=== PATIENT | female | born 1970 | race African-American/Black ===

== ENCOUNTER → 2020-11-07 | Outpatient (CLI) | payer OTHER ==
[~2020-11-07] VITALS: Ht 165.1 cm; Wt 62.6 kg
[~2020-11-07] MED LIST: ALPRAZOLAM 0.50.5 M1 PO; AMBIEN 10 MG TA10 MG PO; CELEXA 20 MG TA20 M1 PO; COZAAR 50 MG TA50 M1 PO; CYCLOBENZAPRINE10 MG PO; DEPAKOTE ER500 M1 PO; ESTRACE0.5 MG PO; ESTRACE1 MG PO; FLEXERIL PO; HYDROCHLOROTHIA25 M1 PO; HYDROCODONE-AP1 EAC6 PO; KLOR-CON M2020 MEQ PO; LUNESTA3 MG PO; MELOXICAM15 MG PO; NEURONTIN 300300 M1 PO; NEURONTIN 300M300 M2 PO; NORCO 5-325 TA1 EACH PO; NORVASC 5 MG TAB5 MG PO; PROAIR HFA8.5 GM INH; ROBAXIN500 MG PO; TOPROL XL50 MG PO; TRAMADOL 50 MG50 MG PO; ULTRAM 50MG TAB50 MG PO; XANAX 0.25 MG0.25 MG; XANAX 0.25 MG0.25 MG PO
--- NOTE | ~2020-11-07 | HPC ---
[facility] [place] [address] PAIN MANAGEMENT CONSULTATION Name: TYREE BROWNING Room #: REG SADIA SpainMellyMelvinMelly#: [id number] Admission: 11/07/20 Attend Phys: Manuel Lares DO Discharge: Date of : 68 Report #: [id number] THIS REPORT FOR: cc: Jah River,Manuel Guillen MD, DO ~ cc: Farhana Trujillo NP DATE OF SERVICE: 11/07/2020 CHIEF COMPLAINT: Low back pain, right lower extremity pain with paresthesias. HISTORY OF PRESENT ILLNESS: As you know, the patient is a 50-year-old female who has an acute onset of low back pain, right lower extremity pain with paresthesias. She indicates that she has had symptoms in the past for which she underwent epidural injections with benefit. She reports that she received excellent benefit with those injections in the past, but has not followed up with that clinic since 2012. She reports that her new pain began without inciting injury or trauma. She has been in physical therapy since 04/2020, going once a week due to limitations of COVID-19 accommodating the patient in their clinic. Due to lack of improvement with conservative treatment, the patient sought further evaluation through her PCP who ordered x-ray of the lumbar spine. Unfortunately, MRI was not obtainable, which would be extremely beneficial in helping us to determine the potential source of her symptoms. She does have imaging from the past, but nothing recent enough to be able to make any clinical correlations. The patient was referred on to our clinic to discuss interventional treatments to address low back and right lower extremity pain with radiation all the way to the foot. The patient reports today her pain is continuous, steady and constant. She describes the pain as burning, shooting, throbbing, sharp, stabbing, numbness and tingling. Places current pain score at 10/10, daily average anywhere from 8-10/10, worst pain has been 10/10. The patient reports pain is exacerbated with motion and is improved with heat and cold compresses. She has been referred to our service to discuss interventional treatment options. PAST MEDICAL HISTORY: 1. Hypertension. 2. History of nephrolithiasis. 3. Migraine headaches. 4. Anxiety. 5. Insomnia. PAST SURGICAL HISTORY: 1. Hysterectomy. 2. Cholecystectomy. 3. [place] [address] PAIN MANAGEMENT CONSULTATION Name: TYREE BROWNING Room #: REG CL Mick#: [id number] Admission: 11/07/20 Attend Phys: Manuel Lares DO Discharge: Date of : 68 Report #: [id number] 4. Previous breast surgery. SOCIAL HISTORY: The patient denies current tobacco use. Denies IV or illicit drug use. Denies any chronic alcohol use. 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 She is working, not receiving workmen's compensation nor is she trying to obtain disability benefits. She is not in litigation in regards to pain. She is unaccompanied at today's visit. REVIEW OF SYSTEMS: Positive only for wearing corrective eyewear, low back pain and right lower extremity pain. All other review of systems negative per 12-point review of systems other than those listed in history of present illness. Pain impact score 63/70, severe near complete interference of daily activities secondary to pain. ALLERGIES: CODEINE, ASPIRIN, ACETAMINOPHEN, AND LATEX. CURRENT MEDICATIONS: Divalproex 500 mg once a day, Lunesta 3 mg p.o. at bedtime, alprazolam 0.5 mg once a day, potassium chloride 20 mEq p.o. every day, estradiol 0.5 mg once a day, hydrochlorothiazide 25 mg per day, metoprolol XL 50 mg once a day, meloxicam 15 mg once a day, albuterol 2 puffs q.4 hours p.r.n., gabapentin 300 mg b.i.d. IMAGING: No new imaging available. PHYSICAL EXAMINATION: VITAL SIGNS: Blood pressure 166/93, pulse 67, respiratory rate 16 and unlabored. The patient 98% on room air. Height 5 feet 5 inches tall, weight 138 pounds, BMI calculated 23.0. GENERAL: Well-developed, well-nourished, well-hydrated 50-year-old female appearing stated age, placing current pain score up to 10/10. HEENT: Normocephalic, atraumatic. Pupils equal, round and responsive to light. Extraocular muscles are intact. Speech is fluent. The patient deemed a good historian. She is wearing a mask in compliance with COVID-19 regulations. LUNGS: Clear. No appreciable wheezes, rhonchi or rales. CARDIOVASCULAR: Regular. No appreciable gallop, no rub. EXTREMITIES: Show no clubbing, no cyanosis. No appreciable edema. MUSCULOSKELETAL: Lower extremity strength equal and symmetrical 5/5. She is tender to palpation over the paraspinal musculature on the right, negative left. Phuong's test is negative. Seated straight leg raising negative. Supine straight leg raising positive on the right. Fabere's test is negative. Modified Gaenslen's positive for some axial low back pain. Ankle clonus negative. Babinski is negative. Gait appears mildly antalgic, though she can toe walk and heel walk. ASSESSMENT: 1. Symptomatic lumbar radiculopathy. [facility] [address] [place] [address] PAIN MANAGEMENT CONSULTATION Name: TYREE BROWNING ESTRELLA Room #: REG SADIA Mick#: [id number] Admission: 11/07/20 Attend Phys: Manuel Lares DO Discharge: Date of : 68 Report #: [id number] 2. Chronic low back pain. 3. Lumbosacral spondylosis. 4. Chronic intractable pain. PLAN: 1. Based on today's physical exam, the history the patient has provided, the description the patient uses in regards to pain as well as location of symptoms, the likely source of the patient's pain is lumbar radiculopathy. The patient comes to us today to discuss treatment options. She has trialled conservative treatment with [id number] medications, rest, relaxation heat and cold compresses without benefit. She has been started on physical therapy and attending physical therapy once a week since April, but this has yet to provide much in the way of improvement. She sought further evaluation of the primary care physician who has trialed the patient on gabapentin, but again the patient has noted no benefit. She was subsequently referred on to our clinic to discuss interventional treatment options. We discussed with the patient the treatment most appropriate for her symptoms is a lumbar epidural injection under fluoroscopic guidance. We discussed this with the patient today. Apparently, she has had these injections in the past and did very well. The patient and I did discuss that if her symptoms do not improve with an epidural injection then we would recommend the primary team obtain a new MRI, review those findings and determine if more interventional treatment options would be recommended or surgical consultation would be necessary. We will discuss this at followup visits based on the efficacy of the proposed epidural injection. 2. The patient will clear her schedule for tomorrow to undergo lumbar epidural injection. We will have her return to undergo that procedure. We will keep you apprised of response to treatment. 3. No medication changes made at today's visit. We recommend the patient continue current medical therapy as prior prescribed. One can certainly look towards increasing the gabapentin as she is only taking one 300 mg tablet in morning and one 300 mg tablets at night. This could be escalated all the way up to 1200 mg 3 times a day if necessary. If this is necessary to control symptoms further, we will provide those suggestions to the referring physician. 4. We wish to thank Dr. Phelps for the opportunity to see the patient in consultation. We will keep you apprised of the patient's response to lumbar epidural injections. Again, we wish to thank you for the opportunity to see the patient in consultation. By: [id number] Manuel Lares DO /nt
[2020-11-07 09:45] VITALS: BP 166/93
--- NOTE | 2020-11-07 10:23 | NUR ---
Pain Clinic Assessment: 1. History of Osteoarthritis: Not Applicable History of Rheumatoid Arthritis: Not Applicable 2. Height: 5 ft. 5 in. 165.1 cm. Weight: 138.0 lb. oz. 62.596 kg. Patient's BMI: 23.0 3. Vital Signs: BP: 166/93 Pulse: 67 Resp: 16 Temp: 02 Sat: 98 ECG Mon: 4. Pain Intensity: 10 5. Fall Risk: Dizziness: N Needs help standing or walking: N Fallen in the last 3 months: N Fall risk comments: 6. Patient on Blood Thinner: None 7. History of Hypertension: Y 8. Opioid Therapy greater than 6 weeks: Y Opiate Contract Signed: 9. Risk Assessment Tool Provided: LOW 10. Functional Assessment Tool: 63/70 11. Recreational Drug Use: Never Drug Type: Tobacco Use: Former Smoker Tobacco Type: Cigarettes Amount or Packs/day: How Many Years: Alcohol Use: No Frequency: Quant:
== END ==
LOC: PAIN 06:48
PROVIDERS: ATTEND Anesthesiology Pain Medicine
DX: M47.27 Other spondylosis with radiculopathy, lumbosacral region (principal); G89.4 Chronic pain syndrome; Z79.899 Other long term (current) drug therapy; Z79.891 Long term (current) use of opiate analgesic

== ENCOUNTER → 2020-11-08 | Outpatient (CLI) | payer OTHER ==
[~2020-11-08] VITALS: Ht 165.1 cm; Wt 62.6 kg
[2020-11-08 10:48] VITALS: BP 169/98
--- NOTE | 2020-11-08 10:54 | NUR ---
Pain Clinic Assessment: 1. History of Osteoarthritis: Not Applicable History of Rheumatoid Arthritis: Not Applicable 2. Height: 5 ft. 5 in. 165.1 cm. Weight: 138.0 lb. oz. 62.596 kg. Patient's BMI: 23.0 3. Vital Signs: BP: 169/98 Pulse: 66 Resp: 16 Temp: 02 Sat: 100 ECG Mon: 4. Pain Intensity: 10 5. Fall Risk: Dizziness: N Needs help standing or walking: N Fallen in the last 3 months: N Fall risk comments: 6. Patient on Blood Thinner: None 7. History of Hypertension: Y 8. Opioid Therapy greater than 6 weeks: Y Opiate Contract Signed: 9. Risk Assessment Tool Provided: LOW 10. Functional Assessment Tool: 63/70 11. Recreational Drug Use: Never Drug Type: Tobacco Use: Former Smoker Tobacco Type: Amount or Packs/day: How Many Years: Alcohol Use: No Frequency: Quant:
--- NOTE | 2020-11-14 08:07 | HPC ---
[facility] [place] [address] PAIN MANAGEMENT CONSULTATION Name: TYREE BROWNING Room #: REG SADIA SpainMellyMelvinMelly#: [id number] Admission: 11/08/20 Attend Phys: Manuel Lares DO Discharge: Date of : 68 Report #: [id number] THIS REPORT FOR: cc: Jah River,Manuel Guillen MD, DO ~ cc: Blanca Phelps MD, Jah River, DATE OF SERVICE: 11/08/2020 CHIEF COMPLAINT: Low back pain, right lower extremity pain and paresthesias. HISTORY OF PRESENT ILLNESS: As you know, the patient is a very pleasant 50-year-old female seen in consultation per the request of her primary care physician yesterday 11/07/2020 for suspected lumbar radiculopathy. The patient was seen in consultation diagnosed with a symptomatic lumbar radiculopathy, lumbosacral spondylosis with radicular symptoms and established today's appointment to undergo lumbar epidural injection under fluoroscopic guidance after discussing the treatment options we have available. She returns today reporting pain score 10/10. She describes the pain as constant, aching, shooting, throbbing, sharp, stabbing, numbness and tingling. She describes the pain as exacerbated with sitting, walking more than 30-50 feet, lifting, lying down or trying to relax. Pain improves with heat. She returns today for the first in the series of requested lumbar epidural injections. ALLERGIES: CODEINE, ASPIRIN, ACETAMINOPHEN, AND LATEX. CURRENT MEDICATIONS: Divalproex, Lunesta, alprazolam, potassium chloride, hydrochlorothiazide, estradiol, metoprolol XL, meloxicam, albuterol and gabapentin. SOCIAL HISTORY: The patient denies current tobacco use. Denies IV or illicit drug use. Denies any chronic alcohol use. 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 IMAGING: No new imaging available. PHYSICAL EXAMINATION: VITAL SIGNS: Blood pressure 169/98, pulse is 66, respiratory rate 16 and unlabored. The patient 100% on room air. Height 5 feet 5 inches tall, weight 138 pounds, BMI calculated 23.0. GENERAL: Well-developed, well-nourished, well-hydrated 50-year-old female, appears stated age, pain is rated today 10/10. HEENT: Normocephalic, atraumatic. Pupils equal, round and responsive. Speech fluent. EXTREMITIES: Show no clubbing, no cyanosis. No appreciable edema. MUSCULOSKELETAL: Lower extremity strength equal and symmetrical 5/5. Tender to [facility] [address] [place] [address] PAIN MANAGEMENT CONSULTATION Name: TYREE BROWNING ESTRELLA [facility] #: [facility] [id number] Admission: 11/08/20 Attend Phys: Manuel Lares DO Discharge: Date of : 68 Report #: [id number] palpation over the paraspinal musculature of the lower lumbar spine on the right, negative left again today. Phuong's test is negative. Seated straight leg raising negative. Supine straight leg raising positive on the right. Gait mildly antalgic favoring right lower extremity. ASSESSMENT: 1. Symptomatic lumbar radiculopathy. 2. Lumbosacral spondylosis with radiculopathy. 3. Chronic low back pain. PLAN: 1. The patient returns today in followup visit requesting to undergo lumbar epidural injection under fluoroscopic guidance. We have obtained all authorizations required for the patient to undergo the procedure. She has been advised of the risks and the benefits of the procedure. These risks include but are not necessarily limited to bleeding, bruising, infection, worsening pain, no relief of pain, also risk of temporary or permanent muscle weakness, temporary or permanent nerve damage, possible paralysis, and . The patient states understood and wished to proceed. 2. No medication changes made at today's visit. The patient will continue current medical therapy as prior prescribed. 3. The patient will remain relatively sedentary over the next 24 hours, allowing the injection to take effect. She can then return to normal activities, Friday of this week. She has been able to clear her schedule for the afternoon to just go home and relax. 4. We will see the patient back in followup visit in 1 month for possible next in a series of epidural injections. We are hopeful the patient will see good benefit with today's procedure. PROCEDURE NOTE DESCRIPTION OF PROCEDURE: L5-S1 right paramedian epidural steroid injection under fluoroscopic guidance. This is the first procedure of the first series that the patient is undergoing. After obtaining written consent, the patient was taken back to the fluoroscopy suite, placed in a prone position with pillow under the abdomen to decrease lumbar lordosis. The skin overlying the lumbosacral area was then prepped and draped in aseptic fashion. The L5-S1 vertebral interspace was then identified by AP fluoroscopy. The skin and subcutaneous tissue overlying the target site of injection was anesthetized with 3 mL 1% lidocaine. A 20 gauge 3.5 inch Tuohy needle was then advanced under fluoroscopic guidance towards the epidural space using a right paramedian approach. The epidural space was identified using loss of resistance to air technique. After negative [address] [address] PAIN MANAGEMENT CONSULTATION Name: TYREE BROWNING [id number] Admission: 11/08/20 Attend Phys: Manuel Lares DO Discharge: Date of : 68 Report #: [id number] aspiration for heme or cerebrospinal fluid, a total of 1 mL of Omnipaque was injected. A lumbar epidurogram was confirmed using both AP and lateral fluoroscopy. After negative aspiration for heme or cerebrospinal fluid, 5 mL of a solution containing 2 mL 40 mg per mL 80 mg total triamcinolone along with 3 mL of lidocaine 1% was injected in increments. Contrast spread was noted in posterior epidural space. The needle was then retracted approximately half way and needle tract flushed with 1 mL of 1% lidocaine. Needle was then removed. There were no apparent sensory or motor deficits in the lower extremity following the procedure. A sterile bandage was placed over the injection site. The heart rate, pulse, oximetry and blood pressure were continuously monitored after the procedure. There were no apparent complications. The patient tolerated the procedure well and was carefully escorted to the recovery room in stable condition. There were no apparent complications. After meeting discharge criteria, the patient was then discharged home. <ELECTRONICALLY SIGNED> By: Manuel Lares DO 11/14/20 [id number] Manuel Lares DO /nt
== END | disposition home or self-care (01) ==
LOC: PAIN 07:08
PROVIDERS: ATTEND Anesthesiology Pain Medicine
DX: M47.27 Other spondylosis with radiculopathy, lumbosacral region (principal); M54.5 Low back pain; G89.29 Other chronic pain; Z98.890 Other specified postprocedural states; Z79.899 Other long term (current) drug therapy; Z88.8 Allergy status to other drugs, medicaments and biological substances; Z91.040 Latex allergy status